=== PATIENT | female | born 2000 | race Caucasian/White ===

== ENCOUNTER 2025-11-23 19:45 | Emergency (ER) | payer OTHER, SELFPAY ==
--- OUTSIDE RECORDS SUMMARY | 2025-07-01 16:00 | XMS_ITS ---
Author Organization [facility] Address [address] [place] [employer] [place] [address] Phone [phone] Care Team Providers Care Bed Machine Operator Name Role Phone Pastora Unger NP [phone] REASON FOR VISIT Visit Social History Sex Observation Social History Observation Description Sex Observation Female Vital Signs Vital Sign Value Appt Date Blood pressure systolic 110 mm Hg 07/01/20 25 Blood pressure diastolic 72 mm Hg 025 Height 63.00 in 07/01/2025 Weight 173.00 lbs 07/01/2025 BMI 30.64 kg/m2 07/01/2025 BMI Percentile 30.65 % 07/01/2025 Height-cm 160.02 cm 07/01/2025 Weight-kg 78.47 kg 07/01/2025 Encounters Date Time Type Facility Location Provider Diagnosis 07/01/2025 04:00 PM Office Visit [facility] [address] [place] [address] Pastora Unger Encounter for supervision of normal , unspecified, third trimester Z34.93 Assessments Encounter Date Diagnosis (ICD Code) Assessment Notes Treat ment Notes Section Notes 07/01/2025 Encounter for superv ision of normal , unspecified, third trimester (ICD-10 - Z34.93) Plan Of Treatment No Information Medical (General) History Surgical History Surgery Date(Month/Year) Sx_Procedure : Tonsillectomy Med_system:obstetric, Disease : -full term, Sx_Procedure : - Full [id number] History and Physical Notes * HPI (History of Present Illness) Categoryc/oDeniesSymptomDurationDetailsNotesCategory NotesMigrated HPI routine :: Lev: Progress Notes * Ralph SMALLWOODaDOB:[birth year] (24 yo F)Acc No.[id number]:07/01/2025 Patient:??Mahsa Smallwood :??Pastora Unger NPDOB:2000?Age:24 Y ?Sex:FemaleDate:07/01/2025Phone:[phone]:[address] [place] [address], [address], [facility] Subjective: * Chief Complaints: * Visit * HPI: ?Migrated HPI:?routine :: Lev:. Objective: * Vitals: BP: 110/72 mm Hg, Wt: 173.00 lbs, Wt-k.47 kg, Ht: 63.00 in, Ht-cm: 160.02 cm, BMI: 30.64 Index, BMI %: 30.65 %. Assessment: * Assessment: 1. Encounter for supervision of normal , unspecified, third trimester - Z34.93 Specify :Src Diagnosis Name: Normal , third trimester Notes : Plan: * Procedure Codes: 0502F SUBSEQUENT [id number] SUBSEQUENT [id number] DIAST BP <80 MM [id number] DIAST BP <80 MM [id number] SYST BP LT 130 MM [id number] SYST BP LT 130 MM [id number] MED LIST DOCD IN [id number] MED LIST DOCD IN [facility] Billing Information: * Procedure Codes: 0502F SUBSEQUENT CARE. 3078F DIAST BP <80 MM HG. 3074F SYST BP LT 130 MM HG. 1159F MED LIST DOCD IN [facility]. * Electronic signature of Annalee Unger NP on 11/23/2025 at 08:46 PM EST Sign off status: Pending * Provider: Pastora Unger NP Date: 07/01/2025 Generated for Curry herndon/Ale/Reji on: 11/23/2025 08:46 PM EST
--- OUTSIDE RECORDS SUMMARY | 2025-07-05 12:00 | XMS_ITS ---
Author Organization [facility] Address [address] [place] [address] Phone [phone] Care Team Providers Care Mortar Maker Name Role Phone Joe CNJacques, CAMPUS PRESIDENT, Janeen Rao REASON FOR VISIT Visit Social History Sex Observation Social History Observation Description Sex Observation Female Vital Signs Vital Sign Value Appt Date Blood pressure systolic 128 mm Hg 07/05/20 25 Blood pressure diastolic 78 mm Hg 025 Height 63.00 in 07/05/2025 Weight 173.00 lbs 07/05/2025 BMI 30.64 kg/m2 07/05/2025 BMI Percentile 30.65 % 07/05/2025 Height-cm 160.02 cm 07/05/2025 Weight-kg 78.47 kg 07/05/2025 Encounters Date Time Type Facility Location Provider Diagnosis 07/05/2025 12:00 PM OFFICE O/P EST LOW 20 MIN (69780) [facility] [address] [place] [address] Janeen Diaz Encounter for supervision of normal first , third trimester Z34.03 Assessments Encounter Date Diagnosis (ICD Code) Assessment Notes Treat ment Notes Section Notes 07/05/2025 Encounter for superv ision of normal first , third trimester (ICD-10 - Z34.03) Plan Of Treatment No Information Medical (General) History Surgical History Surgery Date(Month/Year) Sx_Procedure : Tonsillectomy Med_system:obstetric, Disease : -full term, Sx_Procedure : - Full [id number] History and Physical Notes * HPI (History of Present Illness) Categoryc/oDeniesSymptomDurationDetailsNotesCategory NotesMigrated HPI routine :: Lev: Progress Notes * Ralph SMALLWOODNicoleB:[birth year] (24 yo F)Acc No.[id number]:07/05/2025 Patient:??Mahsa Smallwood :??Janeenher Nikia Diaz CNM, NPDOB:2000 ?Age:24 Y?Sex:FemaleDate:07/05/2025Phone:[phone]:[address] [facility], [address], [facility] Subjective: * Chief Complaints: * Visit * HPI: ?Migrated HPI:?routine :: Lev:. Objective: * Vitals: BP: 128/78 mm Hg, Wt: 173.00 lbs, Wt-k.47 kg, Ht: 63.00 in, Ht-cm: 160.02 cm, BMI: 30.64 Index, BMI %: 30.65 %. Assessment: * Assessment: 1. Encounter for supervision of normal first , third trimester - Z34.03 Notes : Plan: * Procedure Codes: 42941 NON-STRESS [id number] NON-STRESS CIED7901T SUBSEQUENT [id number] SUBSEQUENT YWWG1558M DIAST BP <80 MM [id number] DIAST BP <80 MM QL2319F SYST BP LT 130 MM [id number] SYST BP LT 130 MM NW4941D MED LIST DOCD IN [id number] MED LIST DOCD IN [facility] Billing Information: * Visit Code: 70369 OFFICE O/P EST LOW 20 MIN. * Procedure Codes: 39471 NON-STRESS TEST. 0502F SUBSEQUENT CARE. 3078F DIAST BP <80 MM HG. 3074F SYST BP LT 130 MM HG. 1159F MED LIST DOCD IN RD. * Electronic signature of Kari Diaz CNM, NP on 11/23/2025 at 08:46 PM EST Sign off status: Pending * Provider: Janeen Diaz CNM, NP Date: 07/05/2025 Generated for Curry herndon/Ale/Reji on: 11/23/2025 08:46 PM EST
--- OUTSIDE RECORDS SUMMARY | 2025-07-05 20:00 | XMS_ITS ---
Author Organization [facility] Address [address] [place] [address] Phone [phone] Care Team Providers Care Outdoor Emergency Care Technician Name Role Phone Migration, Provider Unavailable Unavailable REASON FOR VISIT TelEnc Social History Sex Observation Social History Observation Description Sex Observation Female Encounters Date Time Type Facility Location Provider Diagnosis 07/05/2025 08:00 PM Telephone Encounter [facility] [place] [address] [place] [address] Provider Migration Plan Of Treatment No Information Medical (General) History Surgical History Surgery Date(Month/Year) Sx_Procedure : Tonsillectomy Med_system:obstetric, Disease : -full term, Sx_Procedure : - Full [id number] Progress Notes * Domenico SMALLWOODB:[birth year] (24 yo F)Acc No.[id number]:07/05/2025 Patient:??Mahsa SMALLWOOD :2000?Age:24 Y?Sex:FemalePhone: Lxtgycz:[address] [facility], [address], [place], [address] Subjective: * Chief Complaints: * TelEnc * * Date:
--- OUTSIDE RECORDS SUMMARY | 2025-07-12 09:15 | XMS_ITS ---
Author Organization [facility] Address [address] [place] [address] Phone [phone] Care Team Providers Care Sterilizer Operator Name Role Phone Ghada Mackey CNM [facility] REASON FOR VISIT Visit Social History Sex Observation Social History Observation Description Sex Observation Female Vital Signs Vital Sign Value Appt Date Blood pressure systolic 110 mm Hg 07/12/20 25 Blood pressure diastolic 80 mm Hg 025 Height 65.00 in 07/12/2025 Weight 176.00 lbs 07/12/2025 BMI 29.28 kg/m2 07/12/2025 BMI Percentile 29.29 % 07/12/2025 Height-cm 165.10 cm 07/12/2025 Weight-kg 79.83 kg 07/12/2025 Encounters Date Time Type Facility Location Provider Diagnosis 07/12/2025 09:15 AM Office Visit [facility] [address] [place] [address] Ghada Mackey Encounter for supervision of normal first , third trimester Z34.03 Assessments Encounter Date Diagnosis (ICD Code) Assessment Notes Treat ment Notes Section Notes 07/12/2025 Encounter for superv ision of normal first , third trimester (ICD-10 - Z34.03) Plan Of Treatment No Information Medical (General) History Surgical History Surgery Date(Month/Year) Sx_Procedure : Tonsillectomy Med_system:obstetric, Disease : -full term, Sx_Procedure : - Full [id number] History and Physical Notes * HPI (History of Present Illness) Categoryc/oDeniesSymptomDurationDetailsNotesCategory NotesMigrated HPI Lev::: Lev: Progress Notes * Domenico SMALLWOODB:[birth year] (24 yo F)Acc No.[id number]:07/12/2025 Patient:??Mahsa Smallwood :??Ghada Mackey, CNMDOB:2000 ?Age:24 Y?Sex:FemaleDate:07/12/2025Phone:[phone]:[address] [facility], [address], [facility] Subjective: * Chief Complaints: * Visit * HPI: ?Migrated HPI:?Lev::: Lev:. Objective: * Vitals: BP: 110/80 mm Hg, Wt: 176.00 lbs, Wt-k.83 kg, Ht: 65.00 in, Ht-cm: 165.10 cm, BMI: 29.28 Index, BMI %: 29.29 %. Assessment: * Assessment: 1. Encounter for supervision of normal first , third trimester - Z34.03 Notes : Plan: * Procedure Codes: 0502F SUBSEQUENT [id number] SUBSEQUENT [id number] DIAST BP 80-89 MM [id number] DIAST BP 80-89 MM ML1769K SYST BP LT 130 MM [id number] SYST BP LT 130 MM CQ8554R AMNT PAIN NOTED NONE [id number] AMNT PAIN NOTED NONE [id number] MED LIST DOCD IN [id number] MED LIST DOCD IN [facility] Billing Information: * Procedure Codes: 0502F SUBSEQUENT CARE. 3079F DIAST BP 80-89 MM HG. 3074F SYST BP LT 130 MM HG. 1126F AMNT PAIN NOTED NONE PRSNT. 1159F MED LIST DOCD IN [facility]. * Electronic signature of Carina Mackey CNM on 11/23/2025 at 08:45 PM EST Sign off status: Pending * Provider: Ghada Mackey CNM Date: 07/12/2025 Generated for Curry herndon/Ale/Reji on: 11/23/2025 08:45 PM EST
--- OUTSIDE RECORDS SUMMARY | 2025-07-14 09:00 | XMS_ITS ---
Author Organization [facility] Address [address] [place] [address] Phone [phone] Care Team Providers Care Vp Clinical Research Name Role Phone Migration, Provider Unavailable Unavailable REASON FOR VISIT EMR-Alexander Social History Sex Observation Social History Observation Description Sex Observation Female Encounters Date Time Type Facility Location Provider Diagnosis 09:00 AM [facility] [address] [place] [address] Provider Migration Plan Of Treatment No Information Medical (General) History Surgical History Surgery Date(Month/Year) Sx_Procedure : Tonsillectomy Med_system:obstetric, Disease : -full term, Sx_Procedure : - Full [id number] Progress Notes * Ralph SMALLWOODaDOB:[birth year] (24 yo F)Acc No.[id number]:07/14/2025 Patient:??MiRalph garciaa :??Provider MigrationDOB:2000?Age:24 Y ?Sex:FemaleDate:07/14/2025Phone:[phone]:[address], [address], [place] Subjective: * Chief Complaints: * EMR-Alexander Plan: * Procedure Codes: 25754 OBSTETRICAL [id number] OBSTETRICAL CARE Billing Information: * Procedure Codes: 74670 OBSTETRICAL CARE. * Electronic signature of Prov ider Migration on 11/23/2025 at 08:46 PM EST Sign off status: Pending * Provider: Provider Migration Date: 07/14/2025 Generated for Curry herndon/Ale/Reji on: 11/23/2025 08:46 PM EST
--- OUTSIDE RECORDS SUMMARY | 2025-07-14 13:27 | XMS_ITS ---
Author Organization [facility] Address [address] [place] [address] Phone [phone] Care Team Providers Care Family Day Care Worker Name Role Phone Migration, Provider Unavailable Unavailable REASON FOR VISIT TelEnc Social History Sex Observation Social History Observation Description Sex Observation Female Encounters Date Time Type Facility Location Provider Diagnosis 07/14/2025 01:27 PM Telephone Encounter O[facility] [place] [address] [place] [address] Provider Migration Plan Of Treatment No Information Medical (General) History Surgical History Surgery Date(Month/Year) Sx_Procedure : Tonsillectomy Med_system:obstetric, Disease : -full term, Sx_Procedure : - Full [id number] Progress Notes * Domenico SMALLWOODB:[birth year] (24 yo F)Acc No.[id number]:07/14/2025 Patient:??Mahsa SMALLWOOD :2000?Age:24 Y?Sex:FemalePhone: Cylxtyk:[address] [facility], [address], [place], [address] Subjective: * Chief Complaints: * TelEnc * * Date:
--- OUTSIDE RECORDS SUMMARY | 2025-07-15 11:33 | XMS_ITS ---
Author Organization [facility] Address [address] [place] [address] Phone [phone] Care Team Providers Care Commissioning Specialist Name Role Phone Migration, Provider Unavailable Unavailable REASON FOR VISIT TelEnc Social History Sex Observation Social History Observation Description Sex Observation Female Encounters Date Time Type Facility Location Provider Diagnosis 07/15/2025 11:33 AM Telephone Encounter O[facility] [place] [address] [place] [address] Provider Migration Plan Of Treatment No Information Medical (General) History Surgical History Surgery Date(Month/Year) Sx_Procedure : Tonsillectomy Med_system:obstetric, Disease : -full term, Sx_Procedure : - Full [id number] Progress Notes * Domenico SMALLWOODB:[birth year] (24 yo F)Acc No.[id number]:07/15/2025 Patient:??Mahsa SMALLWOOD :2000?Age:24 Y?Sex:FemalePhone: Zadvrpx:[address] [facility], [address], [place], [address] Subjective: * Chief Complaints: * TelEnc * * Date:
--- OUTSIDE RECORDS SUMMARY | 2025-08-24 11:15 | XMS_ITS ---
Author Organization [facility] Address [address] [place] [address] Phone [phone] Care Team Providers Care Customer Relations Coordinator Name Role Phone Pastora Unger NP [phone] REASON FOR VISIT Post Visit Social History Sex Observation Social History Observation Description Sex Observation Female Vital Signs Vital Sign Value Appt Date Blood pressure systolic 120 mm Hg 08/24/20 25 Blood pressure diastolic 78 mm Hg 025 Height 65.00 in 08/24/2025 Weight 152.00 lbs 08/24/2025 BMI 25.29 kg/m2 08/24/2025 BMI Percentile 25.29 % 08/24/2025 Height-cm 165.10 cm 08/24/2025 Weight-kg 68.95 kg 08/24/2025 Encounters Date Time Type Facility Location Provider Diagnosis 08/24/2025 11:15 AM Office Visit OBGYN [place] [address] [place] [address] Pastora Unger Encounter for routine follow-up Z39.2 Assessments Encounter Date Diagnosis (ICD Code) Assessment Notes Treat ment Notes Section Notes 08/24/2025 Encounter for routin e follow-up (ICD-10 - Z39.2) Impression:PPV -Declines contraception - -EPDS: 06/30 Plan Of Treatment No Information Medical (General) History Surgical History Surgery Date(Month/Year) Sx_Procedure : Tonsillectomy Med_system:obstetric, Disease : -full term, Sx_Procedure : - Full [id number] History and Physical Notes * HPI (History of Present Illness) Categoryc/oDeniesSymptomDurationDetailsNotesCategory NotesMigrated HPI check:: The patient has no feeding complications, nursing difficulties, breast problems,vaginal bleeding, urinary problems or bowel problems. The patient has no history of domestic violence. The patient has not resumed sexual activity, work or exercise. The patient has no episiotomy/lace ration pain. Additional Information: Pt would like to discuss decreasing her milk supply Examination CategoryFieldDetailsNotesCategory NotesMigrated Examination Constitutional:: Details: Well developed. ;Findings: Normal Psychiatric:: Details: Orientation - Oriented to time, place, person & situation.Appropriate mood and affect. ;Findings: Normal Progress Notes * Domenico SMALLWOODB:[birth year] (24 yo F)Acc No.[id number]:08/24/2025 Patient:??Mahsa Smallwood :??Pastora Hanna ALINE UngerDOB:2000?Age:24 Y ?Sex:FemaleDate:08/24/2025Phone:[phone]:[address] [facility], [address], [place], [facility] Subjective: * Chief Complaints: * Post Visit * HPI: ?Migrated HPI:? check:: The patient has no feeding complications, nursing difficulties, breast problems,vaginal bleeding, urinary problems or bowel problems. The patient has no history of domestic violence. The patient has not resumed sexual activity, work or exercise. The patient has no episiotomy/lace ration pain. Additional Information: Pt would like to discuss decreasing her milk supply. * ROS: ?ROS System : :Episiotomy/laceration pain, Resumed sexual activity, Urinary problems and Vaginal bleeding. -Negative, ROS System :Psych : depression. -Negative, ROS System :Integumentary :Breast problems, Feeding complications and Nursing difficulty. -Negative, ROS System :GI :Bowel dysfunction. -Negative. Objective: * Vitals: BP: 120/78 mm Hg, Wt: 152.00 lbs, Wt-k.95 kg, Ht: 65.00 in, Ht-cm: 165.10 cm, BMI: 25.29 Index, BMI %: 25.29 %. * Examination: ?Migrated Examination: ?Constitutional:: Details: Well developed. ;Findings: Normal Psychiatric:: Details: Orientation - Oriented to time, place, person & situation.Appropriate mood and affect. ;Findings: Normal. ? Assessment: * Assessment: 1. Encounter for routine follow-up - Z39.2 Notes :Impression:PPV-Declines mblzfnozcipsm-Fevupnevsnpru-DWSA: 06/30 Plan: * Procedure Codes: 0503F CARE [id number] CARE [id number] DIAST BP <80 MM [id number] DIAST BP <80 MM TN5367H SYST BP LT 130 MM [id number] SYST BP LT 130 MM HG Billing Information: * Procedure Codes: 0503F CARE VISIT. 3078F DIAST BP <80 MM HG. 3074F SYST BP LT 130 MM HG. * Electronic signature of Annalee Unger NP on 11/23/2025 at 08:45 PM EST Sign off status: Pending * Provider: Pastora Unger NP Date: 08/24/2025 Generated for Curry herndon/Ale/Yungsmitting on: 11/23/2025 08:45 PM EST
--- OUTSIDE RECORDS SUMMARY | 2025-10-02 09:00 | XMS_ITS ---
Author Organization [facility] Address [address] [place] [address] Phone [phone] Care Team Providers Care Gas Tester Name Role Phone Migration, Provider Unavailable Unavailable REASON FOR VISIT EMR-Alexander Social History Sex Observation Social History Observation Description Sex Observation Female Encounters Date Time Type Facility Location Provider Diagnosis 5 09:00 [facility] [address] [place] [address] Provider Migration Plan Of Treatment No Information Medical (General) History Surgical History Surgery Date(Month/Year) Sx_Procedure : Tonsillectomy Med_system:obstetric, Disease : -full term, Sx_Procedure : - Full [id number] Progress Notes * Domenico SMALLWOODB:[birth year] (24 yo F)Acc No.[id number]:10/02/2025 Patient:??Mahsa SMALLWOOD :2000?Age:24 Y?Sex:FemalePhone: Xcfbtoc:[address] [facility], [address], [place], [address] Subjective: * Chief Complaints: * EMR-Alexander * * Date:
--- OUTSIDE RECORDS SUMMARY | 2025-10-03 09:00 | XMS_ITS ---
Author Organization [facility] Address [address] [place] [address] Phone [phone] Care Team Providers Care Stock Preparation Supervisor Name Role Phone Migration, Provider Unavailable Unavailable Allergies Allergen (clinical drug ingredient) Drug/Non Drug Allergy documented on EMR Reaction Allergy Type Onset Date Status Substance with penicillin st ructure and antibacterial mechanism of action (substance) Penicillins Unknown Dr clarissa Allergy Active REASON FOR VISIT EMR-Alexander Medications Medication SIG (Take, Route, Frequency, Duration) Notes Start Date End Date Diagnosis (ICD Code) Status 28-0.8 MG Tablet take 1 tablet by oral route every day Oral 5Active Social History Sex Observation Social History Observation Description Sex Observation Female Encounters Date Time Type Facility Location Provider Diagnosis 09:00 AM [facility] [address] [place] [address] Provider Migration Plan Of Treatment No Information Medical (General) History Surgical History Surgery Date(Month/Year) Sx_Procedure : Tonsillectomy Med_system:obstetric, Disease : -full term, Sx_Procedure : - Full [id number] Progress Notes * Domenico SMALLWOODB:[birth year] (24 yo F)Acc No.[id number]:10/03/2025 Patient:??Mahsa SMALLWOOD :2000?Age:24 Y?Sex:FemalePhone: Zdmbuhb:[address], [facility] [address] Subjective: * Chief Complaints: * EMR-Alexander * Medical History: 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 control: Control: Control 1: none. * Surgical History: Sx_Procedure : Tonsillectomy ?? Med_system:obstetric, Disease : -full term, Sx_Procedure : - Full term 2024?? * Medications: TakingPrenatal 28-0.8 MG Tablet take 1 tablet by oral route every day Oral 28-0.8 MG Tablet take 1 tablet by oral route every day Oral [id number] 28-0.8 MG Tablet take 1 tablet by oral route every day Oral * Allergies: Penicillins: Allergy * * Date:
[2025-11-23 20:01] VITALS: BP 107/66; PULSE 92; TEMP 37.1; O2SAT 100; BMI 25.0
--- NOTE | 2025-11-23 20:42 | ED_ITS ---
HPI HPI - General Adult General Stated complaint: Nursing Time Seen by Provider: 11/23/25 20:34 Source: patient Mode of arrival: walk-in History of Present Illness HPI narrative: Patient is a 24-year-old female G1, P1 that presents emergency department with complaints of right breast pain that started last night with redness surrounding her areola that started today. She states that she got chills today but took her temperature at home that was normal. She is 4 months and is combination breast-feeding and pumping. She states she only pumps on the right side as baby will not nurse from that side. She has not noticed any pus or blood in the milk. She does have a penicillin allergy where she will get hives. Related Data Previous Rx's ?Medication ?Instructions ?Recorded clindamycin HCl 300 mg capsule 300 mg PO Q6H 10 days # 40 caps 11/23/25 Allergies Allergy/AdvReac Type Severity Reaction Status Date / Time Penicillins Allergy Mild Hives Verified 11/23/25 20:00 Opioid HPI Opioid Management Most Recent Opioid Data: Last Pain Scale 7 11/23/25, 20:01 Review of Systems ROS Status of ROS 10 or more systems reviewed and unremark able except as noted in history and below PFSH PFSH Social History Little interest or pleasure in doing things: not at all Feeling down, depressed, or hopeless: not at all Exam Narrative Exam Narrative: General: No distress, age-appropriate Skin: Warm, dry, no pallor. No rash. Head: Normocephalic, atraumatic. Neck: Supple, non-tender. Eye: Pupils are equal, round and EOMI. No scleral icterus. Ears, Nose, Mouth, and Throat: No nasal mucosal hypertrophy. Oral mucosa is moist, no posterior oropharynx erythema, uvula is mid-line Cardiovascular: Regular Rate and Rhythm without murmur, gallop or rub. Respiratory: No accessory muscle use or respiratory distress. Chest Wall: no tenderness. Right breast patchy erythema surrounding the areola, no induration or fluctuance palpated, no pus expressed from nipple. Musculoskeletal: Full ROM of all extremities, no calf or popliteal tenderness Neurological: A&O x4. No cranial nerve dysfunction observed. No truncal ataxia. Moves all extremities. Sensation intact. Psychiatric: Cooperative and interactive. Normal mood and affect. Constitutional Vital Signs, click to edit/add: Last Vital Signs Temp 98.7 F 11/23/25 20:01 Pulse 92 H 11/23/25 20:01 Resp 18 11/23/25 21:04 BP 107/66 11/23/25 20:01 Pulse Ox 100 11/23/25 21:04 O2 Del Method Room Air 11/23/25 21:04 Documenting provider has reviewed patient's vital signs: yes Course Vital Signs Vital signs: Vital Signs Temperature 98.7 F 11/23/25 20:01 Pulse Rate 92 H 11/23/25 20:01 Respiratory Rate 16 11/23/25 20:01 Blood Pressure 107/66 11/23/25 20:01 Pulse Oximetry 100 11/23/25 20:01 Oxygen Delivery Method Room Air 11/23/25 20:01 Temperature 98.7 F 11/23/25 20:01 Pulse Rate 92 H 11/23/25 20:01 Respiratory Rate 18 11/23/25 21:04 Blood Pressure 107/66 11/23/25 20:01 Pulse Oximetry 100 11/23/25 21:04 Oxygen Delivery Method Room Air 11/23/25 21:04 Medical Decision Making MDM Narrative Medical decision making narrative: The patient is a 24-year-old female, 4 months , presenting with acute onset right breast pain and erythema surrounding the areola, associated with chills but no documented fever. She is combination and pumping, with exclusive pumping on the affected breast, increasing risk for milk stasis and infection. On exam, she was afebrile and hemodynamically stable, with localized erythema but no induration, fluctuance, nipple discharge, or signs of abscess formation. The clinical presentation is most consistent with early lactational mastitis. Differential considerations included plugged duct and breast abscess; however, absence of a palpable mass, fluctuance, purulent drainage, or systemic toxicity made abscess unlikely at this time, and symptoms were more inflammatory than consistent with a simple blocked duct. Given her reported penicillin allergy (hives), clindamycin was selected for appropriate gram-positive coverage, including Staphylococcus species. The patient received an initial dose of clindamycin in the emergency department and was discharged with a 10-day course. She was advised to continue frequent breast emptying, monitor for worsening symptoms, and return for reevaluation if she develops fever, increasing pain, expanding erythema, or a palpable mass suggestive of abscess. Patient discharged in stable condition with plan for her to call and follow up with OB. Differential Diagnosis Differential Diagnosis: mastitis, Abscess, Plugged milk duct, Discharge Plan Discharge Clinical Impression: Mastitis associated with Patient Disposition: Home, Self-Care Time of Disposition Decision: 20:50 Condition: Good Mode of Transportation: Private Vehicle Prescriptions / Home Meds: New clindamycin HCl 300 mg capsule 300 mg PO Q6H 10 Days Qty: 40 0RF Print Language: Belarusian Instructions: Mastitis (ED) Additional Instructions: * Right breast lactational mastitis (breast infection), no abscess at this time Medications * Clindamycin: Take exactly as prescribed until finished * Do not stop early, even if symptoms improve * Pain/fever control: * Acetaminophen or ibuprofen as directed Call or return immediately if you develop: * Severe or persistent diarrhea * Bloody stools * Rash, swelling, or trouble breathing (possible allergic reaction) Breast Care Instructions * Continue and/or pumping from both breasts * Pump the right breast every 2?3 hours * Milk removal is critical to recovery * Apply warm compresses before pumping to help milk flow * Apply cold packs after pumping for pain and swelling * Gentle breast massage while pumping may help empty the breast * Ensure pump flange fits correctly Activity & Self-Care * Drink plenty of fluids * Rest as much as possible * Wear a supportive but non-restrictive bra Expected Course * You should begin to feel noticeable improvement within 24?48 hours * Redness and pain may take a few days to fully resolve Return to the Emergency Department Immediately If You Have: * Fever >=100.4?F (38?C) * Worsening or spreading breast redness * Increasing pain or swelling * A new firm or painful lump in the breast * Pus or bloody discharge from the nipple * Symptoms not improving after 48 hours of antibiotics * Feeling very ill, weak, or lightheaded Referrals: Physician,Non-Staff, MD [Primary Care Provider] - 1 week Discharge Date/Time: 11/23/25 21:06
--- OUTSIDE RECORDS SUMMARY | 2025-11-23 20:45 | XMS_ITS | Patient Health Record ---
Author Organization [facility] KRISTAL Arauz Address [address] [place] [address] Care Team Providers Care Custom Feed Mill Operator Name Role Phone Maryaudrakylee Radha Primary Care Provider Allergies Allergen (clinical drug ingredient) Drug/Non Drug Allergy documented on EMR Reaction Allergy Type Onset Date Status penicillamine Penicillamine anaphylaxis Drug Allergy ActivePenicillin G BenzathineunknownDrug Bahmxke8101/07/2017Active Reason For Referral No Information Medications Medication SIG (Take, Route, Frequency, Duration) Notes Start Date End Date Status Adderall 10 MG Tablet 1 tablet Orally Twice a da y; Duration: 30 days 1Active Immunizations Vaccine Route Administration Date Status Comme nts influenza, injectable, quadrivalent Unknown 02/10/2020 Administered Meningococcal MCV4O (CVX 114)Tdkpsdf3402/10/2020Administered Social History Social History Sexual History:Social InfoQuestionAnswerNotesSexual AbuseHistory:noneSexual HistoryHad sex in the past 12 months (vaginal, oral, or anal)?Yes? withMen only? Use protection?Yes?? How often?All of the time? Prevention strategies discussed: CondomsHave you ever had a Sexually transmitted disease?NoLast menstrual period 11/16/2020Drugs/Alcohol:Social InfoQuestionAnswerNotesDrugsHave you used drugs other than those for medical reasons in the past 12 months?NoAdditional Details CategorySocial InfoOptionsDetailsDrugs/Alcohol:Do you smoke marijuana?DeniesDo you drink alcohol?Socially Problems Problem Type SNOMED Code ICD Code Onset Dates Problem Status W/U Status Risk Notes Problem Adult health examina tion (037979568) Encounter for general adult medical examination without abnormal findings (Z00.00) 03/18/2020 Active confirmed ProblemAttention deficit disorder without hyperactivity (69355933)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)Activeconfirmed Plan Of Treatment No Information Insurance Providers Payer Name Payer Address Payer Phone Subscriber Number Group Number Insured Name Patient Relationship to Insured Coverage Start Date Coverage End Date [facility] [address] [address] [place] [address] [id number] CIRILO SMALLWOOD Child - Insured does not have Financial Responsibility (includes legally adopted child) [facility] [address] [place] [id number] Yunier SMALLWOOD - patient is the insured Medical (General) History Surgical History Surgery Date(Month/Year) [place] Teeth Extraction 2019 Tonsillectomy 2013 Cyst Removal 2017 Hospitalization History Reason Date(Month/Year) [facility] 06/08/2021
--- OUTSIDE RECORDS SUMMARY | 2025-11-23 20:46 | XMS_ITS | Clinical Summary ---
Author Organization [facility] Address [address], [address] [place] [address] Care Team Providers Care Envelope Fold Operator Name Role Phone Unavailable Primary Care Provider Unavailabl e Allergies Active AllergyReactionsCriticalityNoted GggmIfnbzxkpPruhoczdrjdTlnbx40/04/2025 Medications MedicationSigDispense QuantityRefillsLast FilledStart DateEnd DateStatus Vit-Fe Fumarate-FA ( VITAMIN) 27-1 MG TABS tablet Take 1 tablet by mouth daily 90 tablet 5Active ibuprofen (ADVIL;MOTRIN) 800 MG tablet Take 1 tablet by mouth every 8 hours 120 tablet 5Active ferrous sulfate (IRON 325) 325 (65 Fe) MG tablet Take 1 tablet by mouth daily (with breakfast) 30 tablet 505Active Active Problems ProblemNoted DateDiagnosed DatePostpartum care following vaginal delivery 07/15/2025 Resolved Problems ProblemNoted DateDiagnosed DateResolved Date41 weeks gestation of Group beta Strep dukvcgsl71Rh negative status during syzeroaju75IUP (intrauterine ), wfznbpjtec93 Immunizations ImmunizationAdministration DatesNext DueTDaP, ADACEL (age 10y-64y), BOOSTRIX (age 10y+), IM, 0.5mL07/16/2025 Social History Tobacco UseTypesPacks/DayYears UsedDateSmoking Tobacco: NeverSmokeless Tobacco: Never Tobacco Cessation:Counseling Given: Not Answered Alcohol UseStandard Drinks/WeekCommentsNever0 (1 standard drink = 0.6 oz pure alcohol)Slemp Depression ScaleAnswerDate RecordedEdinburgh Depression Scale Jcstz828The thought of harming myself has occurred to me.Never07/15/2025Housing Stability Vital SignAnswerDate RecordedIn the last 12 months, was there a time when you were not able to pay the mortgage or rent on time?No07/13/2025In the past 12 months, how many times have you moved where you were living?t any time in the past 12 months, were you homeless or living in a halfway (including now)?No07/13/2025Hunger Vital Sign AnswerDate RecordedWithin the past 12 months, you worried that your food would run out before you got the money to buymore.Never true07/13/2025Within the past 12 months, the food you bought just didn't last and you didn't have money to get more.Never true07/13/2025PRAPARE - TransportationAnswerDate RecordedIn the past 12 months, has lack of transportation kept you from medical appointments or from getting medications?No07/13/2025In the past 12 months, has lack of transportation kept you from meetings, work, or from getting things needed for daily living?No07/13/2025HC UtilitiesAnswerDate RecordedIn the past 12 months has the electric, gas, oil, or water company threatened to shut off services in your home?No07/13/2025Food InsecurityAnswerDate RecordedWithin the past 12 months, you worried that your food would run out before you got the money to buy more.Within the past 12 months, the food you bought just didn't last and you didn't have money to get more.Interpersonal Safety Domain Source: IP Abuse ScreeningAnswerDate RecordedPhysical sdjzgUvduxy64/12/2025 Verbal bkgnsMcvqhu55/12/2025Emotional wawbkAsmqgg71/12/2025Financial abuseDenies 07/13/2025Sexual rolgkDtumwx14/12/2025CommentsNoSex and Gender InformationValueDate RecordedSex Assigned at BirthNot on fileLegal SexFemale 12/29/2024 6:20 PM ESTGender IdentityNot on fileSexual OrientationNot on file Last Filed Vital Signs Vital SignReadingTime TakenCommentsBlood Hyurzmop407/8708 7:51 AM EDT Ordvz719507/16/2025 7:51 AM JEDUopddxwsydv47.5 ??C (97.7 ??F)07/16/2025 7:51 AM EDTRespiratory Mndl229007/16/2025 7:51 AM EDTOxygen Sqkxegwkrc61%07/16/2025 7:51 AM EDTInhaled Oxygen Concentration--Scodef59.8 kg (176 lb)07/13/2025 5:29 PM EDT Ydvpzi305.4 cm (5' 5.5 )07/13/2025 5:29 PM EDTBody Mass Index28.8407/13/2025 5:29 PM EDT Plan of Treatment Health MaintenanceDue DateLast DoneCommentsHepatitis B vaccine (2 of 3 - 3-dose series)Depression Phwemt3912/13/2013HIV xqiikf9112/13/2016 Chlamydia/GC frcjjw6512/13/2017Meningococcal B vaccine (1 of 2 - Standard) 2017Hepatitis C griutd2412/13/2019Pap smear2022Flu vaccine (#1) 07/02/2025OVID-19 Vaccine ( season)2025DTaP/Tdap/Td vaccine (7 - Td or Tdap), 01/06/2013, 12/07/2005, Additional history existsPneumococcal 0-49 years VaccineAged Out03/23/2003, 06/11/2002, 04/14/2002, Additional history existsNo longer eligible based on patient's age to complete this topicHib ldijlrcJbcokdkcf53/14/2003, 06/11/2002, 04/14/2002, Additional history existsPolio ssvciarUcdlpwqnq10/16/2006, 06/14/2003, 12/17/2002, Additional history existsVaricella jkuguqtLwrrjuptk26/27/2007, 12/12/2002 Hepatitis A crutyzgFwkjadsyv20/23/2007, 01/28/2007Meningococcal (ACWY) vaccine Aged Out01/06/2013No longer eligible based on patient's age to complete this topicHPV zzlrfhpZnyknxocx18/06/2013, 03/06/2013, 01/06/2013 Insurance [employer] [address] [place] [id number] * Guarantor: Luana Stark TypeRelation to PatientDate of BirthPhone Billing AddressPersonal/SyudheNovg78/12/2002 ([place]) [facility] [employer] [address] [address] Advance Directives * Full Code (Latest Code Status on File) Date ActivatedDate InactivatedComments07/13/2025 5:43 PM07/16/2025 12:20 PM * Full Code Date ActivatedDate InactivatedComments07/05/2025 1:22 PM07/05/2025 3:42 PM
--- OUTSIDE RECORDS SUMMARY | 2025-11-23 20:46 | XMS_ITS | Clinical Summary ---
Author Organization [facility] Address [address] [address] Care Team Providers Care Needle Loom Weaver Name Role Phone Unavailable Primary Care Provider Unavailabl e Social History Tobacco UseTypesPacks/DayYears UsedDateSmoking Tobacco: Never Assessed CommentsUnknownSex and Gender InformationValueDate RecordedSex Assigned at Not on fileLegal JjbYgojud56/30/2022 12:29 AM EDTGender IdentityNot on file Sexual OrientationNot on file Last Filed Vital Signs Vital SignReadingTime TakenCommentsBlood Mixawhzo010/7009 1:38 PM EDT Wkzld17240 1:38 PM EZWOegysbotrca09.6 ??C (97.8 ??F)08/04/2020 1:36 PM EDTRespiratory Xvrc598408/04/2020 1:38 PM EDTOxygen Eqezkmxvlf20%08/04/2020 1:38 PM EDTInhaled Oxygen Concentration--Hkzanq87.3 kg (170 lb 6 oz)08/04/2020 1:37 PM TJEWgcxjv166.4 cm (5' 5.5 )08/04/2020 1:37 PM EDTBody Mass Index27.92 08/04/2020 1:37 PM EDT Plan of Treatment Not on file
--- OUTSIDE RECORDS SUMMARY | 2025-11-23 20:46 | XMS_ITS | Patient Health Record ---
Author Organization [facility] Address [address] [place] [address] Phone [phone] Care Team Providers Care Senior It Auditor Name Role Phone Cheuvront CNM, Ghada Unavailable [phone] [place] CNM, MRS. Fitzpatrick Unavailable [phone] Rene PRINTING ESTIMATOR, Christina Unavailable Joe CNM, ANSWERING SERVICE OPERATOR, Janeen Unavailable Ute ANSWERING SERVICE OPERATOR, Pastora Unavailable [place] MSN, PRINTING ESTIMATOR-C, Dipti Unavailable Migration, Provider Unavailable Unavailable Results Component Value Reference Range Notes Ct, Ng, Trich vag by MACHO Order date: 06/14/2025 Reviewed date:06/17/2025 12:00:00 AM Interpretation: Performing Lab: Notes/Report: Chlamydia by MACHO Negative Negative Gonococcus by NAANegativeNegativeTrich vag by NAANegativeNegativeStrep Gp B MACHO Order date: 06/14/2025 Reviewed date:06/16/2025 12:00:00 AM Interpretation: Performing Lab: Notes/Report: Strep Gp B NAAPositiveNegativeAntibody Screen Order date: 06/24/2025 Reviewed date:06/28/2025 12:00:00 AM Interpretation: Performing Lab: Notes/Report: Antibody ScreenNegativeNegative Reason For Referral No Information Medications Medication SIG (Take, Route, Frequency, Duration) Notes Start Date End Date Diagnosis (ICD Code) Status 28-0.8 MG Tablet take 1 tablet by oral route every day Oral 5Active Immunizations Status Vaccine Route Administration Date Visit Date Comments Administered IG (Immune globulin), human IM Intramuscular 06/24/2025 Social History Sex Observation Social History Observation Description Sex Observation Female Vital Signs Vital Sign Value Notes Appt Date Height-cm 165.10 cm 08/24/2025lood pressure mlwllmife43 mm Hg08/24/2025Weight-kg68.95 kg08/24/2025 BMI Snkstsaeyu80.29 %08/24/20252963Iilcjg45.00 in08/24/2025lood pressure systolic 120 mm Hg08/24/20252328Doosck468.00 lbs08/24/2025BMI25.29 kg/m208/24/2025 Encounters Date Time Type Facility Location Provider Diagnosis 06/24/20 25 11:45 AM Office Visit [facility] [address] [place] [address] Christina López Uterine size-date discrepancy, third trimester O26.843 and Encounter for supervision of normal , unspecified, third trimester Z34.93 07/12/20 25 09:15 AM Office Visit [facility] [address] [place] [address] Ghada Mackey Encounter for supervision of normal first , third trimester Z34.03 07/05/20 25 12:00 PM OFFICE O/P EST LOW 20 MIN ([id number]) MARIE Hamilton [address] [place] [address] Janeen Diaz Encounter for supervision of normal first , third trimester Z34.03 07/14/20 25 09:00 AM [facility] [address] [place] [address] Provider Migration 2:00 PMOffice VisitOBCESAR [facility] [address] [place] [address]Iixaqbwxdu LuzmaEncbraulioer for supervision of normal , unspecified, third trimester Z34.4:00 PMOffice Visit OBGYN Priyanka [address] [place] [address]Lmxly Murrer Encounter for supervision of normal , unspecified, third trimester Z34.:15 AMOffice VisitOBGYN [place] [address] [place] [address]Nerce MurrerEncounter for routine follow- up Z39.:45 PMOffice VisitOBGYN [address] [place] [address]Ndtwsrav SmootUterine size-date discrepancy, third trimester O26.843 and 37 weeks gestation of Z3A.:33 AM Telephone EncounterOBGYN [place] [address] [place] [address]Sfksdroe Rlwiwutdf89:27 PMTelephone EncounterOBGYN [place] [address] [place] [address]Qlhixkge Migration :00 PMTelephone EncounterOBGYN [place] Q[address] [place] [address]Ryvharry Aeskytunx75:27 AMTelephone EncounterOBGYN [place] [address] [place] [address] Provider Dqhqqrfxk94:27 PMTelephone EncounterOBGYN [place] [address] [place] [address]Iwxjzygp Awggrvwoa51:46 PMTelephone EncounterOBGYN [place] [address] [place] [address]Mdspykhi Qwdfokzsz92:52 AMTelephone EncounterOBGYN [place] [address] [place] [address]Qustqffw Migration 9:44 AMTelephone EncounterOBGYN [place] [address] [place] [address]Fonpskka Dxuhncbtf59/23/530926:50 PMTelephone EncounterOBGYN Hamilton[address] [place] [address] Provider Inxdgkkwm76:41 PMTelephone EncounterOBGYN [place] [address] [place] [address]Kagpxyur Gcflgihyb53/02/751278:00 AMTelephone Encounter[facility] [place] [address]Oxiloqey Bpogqbnxj93:00 AMTelephone Encounter[facility] [address] [place] [address]Lujuvtii Migration Assessments Encounter Date Diagnosis (ICD Code) Assessment Notes Treat ment Notes Section Notes 06/14/2025 Encounter for superv ision of normal , unspecified, third trimester (ICD-10 - Z34.93) 06/21/2025Uterine size-date discrepancy, third trimester (ICD-10 - O26.843) weeks gestation of (ICD-10 - Z3A.37)06/24/2025Uterine size-date discrepancy, third trimester (ICD-10 - O26.843) Plan Orders:The patient had the following procedure(s) completed today: RH IG, FULL-DOSE, IM. Strength 1500 Dose 1500 units via Intramuscular on Right arm, Result details: [id number]. 06/24/2025Encounter for supervision of normal , unspecified, third trimester (ICD-10 - Z34.93) Plan Orders:The patient had the following order(s): Antibody Screen. Obtained on 06/24/2025, Interpretation: See module. 07/01/2025Encounter for supervision of normal , unspecified, third trimester (ICD-10 - Z34.93)07/05/2025Encounter for supervision of normal first , third trimester (ICD-10 - Z34.03)07/12/2025Encounter for supervision of normal first , third trimester (ICD-10 - Z34.03)08/24/2025Encounter for routine follow-up (ICD-10 - Z39.2) Impression:PPV -Declines contraception - -EPDS: 06/30 Plan Of Treatment Pending Test Test Name Order Date OB US>/= 14 Wks, Single Fetus 06/21/2025 Insurance Providers Payer Name Payer Address Payer Phone Subscriber Number Group Number Insured Name Patient Relationship to Insured Coverage Start Date Coverage End Date [facility] [address] [place] [address] [phone] [id number] Dani Stark - patient is the insured Medical (General) History Surgical History Surgery Date(Month/Year) Sx_Procedure : Tonsillectomy Med_system:obstetric, Disease : -full term, Sx_Procedure : - Full [id number]
--- OUTSIDE RECORDS SUMMARY | 2025-11-23 20:46 | XMS_ITS | Clinical Summary ---
Author Organization [facility] tem Address [id number] [address] [place] [address] Care Team Providers Care Toll Settlement Clerk Name Role Phone Unavailable Primary Care Provider Unavailabl e Allergies Active AllergyReactionsCriticalityNoted DlenRzrmibfuPqorwbrlpmu12/25/2008 Other reaction(s): unknown Medications MedicationSigDispense QuantityRefillsLast FilledStart DateEnd DateStatus cetirizine (ZyrTEC) 10 mg tablet Indications:Viral URITake 1 tablet (10 mg total) by mouth in the morning. 30 tablet 09/19/2022ctive fluticasone propionate (FLONASE) 50 mcg/actuation nasal spray Indications:Viral URIAdminister 2 sprays into each nostril in the morning. 16 g 09/19/2022ctive Active Problems No known active problems Social History Tobacco UseTypesPacks/DayYears UsedDateSmoking Tobacco: Never Assessed Tobacco Cessation:Counseling Given: Not Answered CommentsUnknownSex and Gender InformationValueDate RecordedSex Assigned at BirthNot on fileLegal KaeAyzqcj82/19/2022 8:48 AM EDTGender IdentityNot on fileSexual OrientationNot on file Last Filed Vital Signs Vital SignReadingTime TakenCommentsBlood Tgeovrkd453/7309/19/2022 8:59 AM EDT Peodc417409/19/2022 8:59 AM ZOUHrzwugrnsxm65.7 ??C (98 ??F)09/19/2022 8:59 AM EDT Respiratory Khly390109/19/2022 8:59 AM EDTOxygen Azhcgeyzav95%09/19/2022 8:59 AM EDTInhaled Oxygen Concentration--Tcdojz43.8 kg (147 lb 3.2 oz)09/19/2022 8:59 AM EDTHeight--Body Mass Index-- Plan of Treatment Health MaintenanceDue DateLast DoneCommentsDepression Vskfctyyv07/12/2014Tobacco Toooecvcr44/12/2014Adult BMI Gffpzctll58/12/2020Pap Smear3DTaP,Tdap and Td Vaccines (6 - Td or Tdap)/04/2013, 12/07/2005, 06/14/2003, Additional history existsCOVID-19 Vaccine (2024- season)2025 04/01/2021, 03/11/2021Influenza Ldflnob26/, 08/31/2009, 10/13/2008, Additional history exists Medical Devices Not on file Insurance * Guarantor: Luana Stark TypeRelation to PatientDate of BirthPhone Billing AddressPersonal/HceautZcit80/12/2001 [facility] [place] [address]
--- OUTSIDE RECORDS SUMMARY | 2025-11-23 20:46 | XMS_ITS | Clinical Summary ---
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 1 Inhaler ctive cetirizine (ZYRTEC) 10 mg PO TABS Take 1 Tab by Mouth Once a Day. 30 Tab ctive Active Problems ProblemNoted DateDiagnosed DateIntoxication by drug06/08/2021 Immunizations ImmunizationAdministration DatesNext DueDTaP 0.5 mL IM (Daptacel 6wk-6yr) Vac 12/07/2005,06/14/2003,06/11/2002,04/14/2002,02/16/2002HIB Haemophilus B (HbOC) 0.5ML IM06/14/2003,06/11/2002,04/14/2002HPV (Gardasil Quad) VAC INJ07/07/2013, 03/06/2013,01/06/2013HepB and HIB COMBO (COMVAX) VAC INJ02/16/2002Hepatitis A 0.5ML IM, Ped Yfvcoutmqxt55/23/2007,01/28/2007Hepatitis B 0.5 mL IM, Peds Pgxlglkeppq95/15/2002,2001INFLU VAC 0.5 mL IM INJ,JVGTZGJDHRN58/15/2017, 08/31/2009,10/13/2008Influenza Vaccine Whole09/23/2007,10/22/2006,11/02/2005 Measles, Mumps, Rubella 0.5ML SC/IM12/17/2005,03/23/2003Meningococcal A,C,Y,W 0.5 mL IM (Menactra 9mo-55yr) vac inj01/06/2013Pneumococcal Zwfvcye7503/23/2003, 06/11/2002,04/14/2002,02/16/2002Polio 0.5 mL SC/IM12/17/2005,06/14/2003, 12/17/2002,04/14/2002,02/16/2002Tdap 0.5 mL IM (Adacel 10yr+) vac inj01/06/2013 Varicella 0.5 mL SC/IM01/28/2007,12/12/2002 Family History Medical HistoryRelationNameCommentsallergic rhinitisFatherAsthmaMaternal GrandmotherHypertensionMaternal Grandmotherallergic rhinitisMaternal Grandmother SeizuresMaternal UncleAsthmaMotherallergic rhinitisMotherCancerPaternal GrandfatherlungHypertensionPaternal Grandmotherallergic rhinitisSisterRelation NameStatusCommentsFatherMaternal GrandmotherMaternal UncleMotherPaternal GrandfatherPaternal GrandmotherSister Social History Tobacco UseTypesPacks/DayYears UsedDateSmoking Tobacco: NeverAlcohol UseStandard Drinks/WeekCommentsNot Asked0 (1 standard drink = 0.6 oz pure alcohol) CommentsNoSex and Gender InformationValueDate RecordedSex Assigned at Ydnudo8712/21/2024 10:18 AM ESTLegal HmqVdcmjr11/22/2013 2:21 AM EDTGender IdentityNot on fileSexual OrientationNot on file Last Filed Vital Signs Vital SignReadingTime TakenCommentsBlood Mqzjffsn006/5507/07/2021 4:00 AM EDT Hvklr0472/07/2021 4:00 AM LNRZzlcricbhuo58.2 ??C (99 ??F)06/08/2021 1:00 AM EDT Respiratory Tzqm470806/08/2021 4:00 AM EDTOxygen Zzihgisrwy50%06/08/2021 4:00 AM EDTInhaled Oxygen Concentration--Nzedxo91.4 kg (164 lb)06/08/2021 1:00 AM EDT Sbnrui737.1 cm (5' 5 )06/08/2021 1:00 AM EDTBody Mass Index27.2907 1:00 AM EDT Plan of Treatment Health MaintenanceDue DateLast DoneCommentsHIV IIWHDLMYW86/12/2017MEN-B VACCINE (1 of 2 - Standard)2017CHLAMYDIA OOBUFCWFE28/12/2020PHYSICAL/EXAM 2019PAP/ CERVICAL CANCER BJWBIWXJX81/12/2023TD EZHABTM24/04/2013 DEPRESSION RPSYCVUSD23/01/2025FLU CVDYDVS32/, 08/31/2009, 10/13/2008, Additional history existsCOVID-19 VACCINE ( season) 2025PNEUMOCOCCAL VACCINE: 0-49Aged Out03/23/2003, 06/11/2002, 04/14/2002, Additional history existsNo longer eligible based on patient's age to complete this topicTDAP USPTTVHEpqxllcee44/05/9089QSXGfxgsfcmf33/06/2013, 03/06/2013, 01/06/2013 Insurance * Guarantor: Luana Smallwood TypeRelation to PatientDate of BirthPhone Billing AddressPersonal/DfjcqnLkxd46/12/2002 [facility] [place] [address] [place] [address] Care Teams Team MemberRelationshipSpecialtyStart DateEnd Date PcpJose Alfredo MD PCP - [facility]06/08/21
[2025-11-23] MEDS: CLINDAMYCIN HCL 150 MG CAPSULE 450 MG PO (21:02)
[2025-11-23 21:04] VITALS: O2SAT 100
== END 2025-11-23 21:06 | disposition home or self-care (01) ==
PROVIDERS: Emergency Provider Emergency Medicine
DX: O91.23 Nonpurulent mastitis associated with lactation (principal)
CPT/HCPCS: 99283